=== PATIENT | male | born 1965 | race Hispanic/Latino ===

== ENCOUNTER 2020-04-08 20:28 | Emergency (ER) | payer SELFPAY ==
[2020-04-08] MEDS ORDERED: FLUORESCEIN SODIUM 1 STRIP STRIP ONE (21:35)
[2020-04-08] MEDS ORDERED: TETRACAINE HCL 0.5% 4 ML OPHTH SOLN ONE (21:36)
[2020-04-08] MEDS ORDERED: TIMOLOL MALEATE 0.5% 5 ML BOTTLE ONE (21:54)
[2020-04-08] MEDS ORDERED: PILOCARPINE HCL 2% 15 ML DROPS ONE (21:54)
[2020-04-08] MEDS ORDERED: AcetaZOLAMIDE 250 MG TAB ONE (21:54)
[2020-04-08] MEDS ORDERED: BRIMONIDINE TARTRATE 0.2% 5 ML BOTTLE ONE (22:01)
[2020-04-08] MEDS ORDERED: HYDROCODONE/ACETAMINOPHEN 10/325 MG TAB ONE (22:05)
== END 2020-04-08 23:05 | disposition home or self-care (01) ==
LOC: EDH 20:28
DX: H40.212 Acute angle-closure glaucoma, left eye (principal)